=== PATIENT | female | born 1995 ===

== ENCOUNTER 2018-12-30 21:38 | Emergency (ER) | payer SELFPAY ==
[~2018-12-30] VITALS: Ht 160 cm; Wt 64.1 kg
[~2018-12-30 21:38] MED LIST: ALBU8.5H8 INH; AMOX1TAB10 PO; HYDR-843 PO
[2018-12-30 21:41] VITALS: BP 144/81; PULSE 107; RESP 18; Ht 160 cm; Wt 64.1 kg
[2018-12-30] MEDS ORDERED: hydrOXYzine HCL 25 MG TAB PO ONE (22:30)
== END 2018-12-30 23:37 | disposition home or self-care (01) ==
LOC: FTE 21:38
DX: F41.9 Anxiety disorder, unspecified (principal); H66.002 Acute suppurative otitis media without spontaneous rupture of ear drum, left ear; J45.901 Unspecified asthma with (acute) exacerbation
CPT/HCPCS: 93005